=== PATIENT | female | born 1950 | race Caucasian/White ===

== ENCOUNTER 2020-11-12 14:57 | Emergency (ER) | payer MEDICARE ==
[~2020-11-12 14:57] MED LIST: ACETAMINOPHEN325 MG PO; ASPIRIN CHEWABL81 MG PO; BIOTIN1 MG PO; BIOTIN5000 MC1 PO; BRILINTA90 MG PO; CEFDINIR300 M1 PO; CIPRO500 MG PO; COLACE100 MG PO; CYMBALTA60 MG PO; DIFLUCAN150 MG PO; ELIQUIS5 MG PO; FEOSOL325 MG PO; FLONASE ALLER15.8 ML; FOCUS FACTOR PO; GARCINIA CAMBOGIA; HEPARIN 3010 UNIT/1 IV; HUMALOG 75100 UNIT/M SQ; HUMULIN R100 UNIT/2 SC; IMODIUM2 MG PO; K-DUR20 MEQ PO; KEFLEX250 MG PO; KETO; LACTINEX1 EACH PO; LANTUS100 UNIT/1 SQ; LASIX40 MG PO; LEVAQUIN500 MG PO; LEVAQUIN750 MG PO; LIPITOR80 MG PO; LOVASTATIN40 MG PO; LYRICA 150MG C150 MG PO; LYRICA 50MG CAP50 MG PO; MACROBID100 MG PO; MELATONIN5 M2 PO; METANX CAPSULE1 EACH PO; METRONIDAZOLE500 MG PO; MICON-GUARD 2% TOP; MUCINEX 600MG600 MG PO; NEXIUM 40MG CAP40 MG PO; NEXIUM40 MG PO; NITROFURANTOIN100 M1 PO; NITROQUIK SL0.4 MG SL; NORCO 5-325 TA1 EACH PO; NYSTATIN SUSP1 ML/ML SSW; PANTOPRAZOLE SO40 MG PO; PREDNISONE 10MG10 MG PO; PREGABALIN25 MG PO; PRINIVIL5 MG PO; ROCEPHIN2 GM IV; SINGULAIR10 MG PO; TOPROL XL 25MG25 MG PO; VANCOMYCIN1.25 GM/21 IV; VENTOLIN HFA IN18 GM INH; VITAMIN D1000 UNI1 PO; ZESTRIL5 MG PO
[2020-11-12] MEDS ORDERED: CEPHALEXIN500 M1 PO (19:03)
== END 2020-11-12 19:20 | disposition home or self-care (01) ==
LOC: FER 14:57
DX: L03.115 Cellulitis of right lower limb (principal); I10 Essential (primary) hypertension; E11.9 Type 2 diabetes mellitus without complications
CPT/HCPCS: 73610; 73630; 93971

== ENCOUNTER 2020-11-12 19:30 | Emergency (ER) | payer MEDICARE ==
[~2020-11-12 19:30] MED LIST changes: +CEPHALEXIN500 M1 PO
== END 2020-11-12 22:00 | disposition home or self-care (01) ==
LOC: FER 19:30
DX: S63.501A Unspecified sprain of right wrist, initial encounter (principal); S80.211A Abrasion, right knee, initial encounter; R51.9 Headache, unspecified; I11.0 Hypertensive heart disease with heart failure; I50.9 Heart failure, unspecified; I48.91 Unspecified atrial fibrillation; E11.9 Type 2 diabetes mellitus without complications; W19.XXXA Unspecified fall, initial encounter; Y92.481 Parking lot as the place of occurrence of the external cause
CPT/HCPCS: 70450; 72125

== ENCOUNTER 2020-11-15 04:37 | Inpatient (IN) | payer MEDICARE ==
[2020-11-15 04:55] LABS: BASOPHIL 0.4 % (0-2); EOSINOPHIL 1.6 % (0-7); HCT 34.7 % (37.0-47.0); HGB 11.4 g/dl (12.5-16.0); MCH 28.9 pg (25.0-31.0); MCHC 32.9 g/dL (32.0-36.0); MCV 87.8 fL (78.0-100.0); MONOCYTE 9.5 % (0-12); MPV 11.3 fL (6.0-9.5); NEUTROPHIL 44.5 % (41-80); NRBC 0; PLT 215 K/uL (150-400); RBC 3.95 M/uL (4.20-5.40); RDW 15.5 % (11.5-14.0); WBC 13.8 K/uL (4.0-10.5)
[2020-11-15 04:56] LABS: LYMPHOCYTE 43.6 % (15-48)
[2020-11-15 05:04] LABS: INR 1.03 (0.9-1.2); PROTHROMBIN TIME 12.8 SECONDS (11.4-13.6)
[2020-11-15 05:12] LABS: ALBUMIN 2.6 g/dL (3.4-5.0); BUN/CREAT RATIO (CALC) 20.7 RATIO; CREATININE 1.21 mg/dL (0.51-0.95); GLOBULIN (CALCULATION) 4.4 g/dL; POTASSIUM 3.9 mmol/L (3.5-5.1)
[2020-11-15 07:10] LABS: CORONAVIRUS 2019 SARS-COV-2 NEGATIVE (NEGATIVE); INFLUENZA A NAA NEGATIVE (NEGATIVE)
[2020-11-17 05:59] LABS: HCT 33.2 % (37.0-47.0); HGB 10.5 g/dl (12.5-16.0); MCH 29.2 pg (25.0-31.0); MCHC 31.6 g/dL (32.0-36.0); MCV 92.2 fL (78.0-100.0); MPV 10.9 fL (6.0-9.5); RBC 3.6 M/uL (4.20-5.40); RDW 15.6 % (11.5-14.0); WBC 10.7 K/uL (4.0-10.5)
[2020-11-17 06:22] LABS: BUN/CREAT RATIO (CALC) 15.4 RATIO; CREATININE 1.3 mg/dL (0.51-0.95); POTASSIUM 3.9 mmol/L (3.5-5.1)
[2020-11-18 05:45] LABS: HCT 35.8 % (37.0-47.0); HGB 11.3 g/dl (12.5-16.0); MCH 28.9 pg (25.0-31.0); MCHC 31.6 g/dL (32.0-36.0); MCV 91.6 fL (78.0-100.0); MPV 10.9 fL (6.0-9.5); RBC 3.91 M/uL (4.20-5.40); RDW 15.7 % (11.5-14.0); WBC 10.4 K/uL (4.0-10.5)
[2020-11-18 06:37] LABS: BUN/CREAT RATIO (CALC) 14.8 RATIO; CREATININE 1.22 mg/dL (0.51-0.95); POTASSIUM 3.9 mmol/L (3.5-5.1)
[2020-11-19 05:48] LABS: HCT 33.7 % (37.0-47.0); HGB 10.9 g/dl (12.5-16.0); MCH 29.2 pg (25.0-31.0); MCHC 32.3 g/dL (32.0-36.0); MCV 90.3 fL (78.0-100.0); MPV 10.6 fL (6.0-9.5); RBC 3.73 M/uL (4.20-5.40); RDW 15.7 % (11.5-14.0); WBC 11.1 K/uL (4.0-10.5)
[2020-11-19 06:16] LABS: BUN/CREAT RATIO (CALC) 15.3 RATIO; CREATININE 1.24 mg/dL (0.51-0.95); POTASSIUM 3.7 mmol/L (3.5-5.1)
[2020-11-20 07:08] LABS: HCT 35.1 % (37.0-47.0); HGB 11.4 g/dl (12.5-16.0); MCH 29.1 pg (25.0-31.0); MCHC 32.5 g/dL (32.0-36.0); MCV 89.5 fL (78.0-100.0); MPV 10.4 fL (6.0-9.5); RBC 3.92 M/uL (4.20-5.40); RDW 15.7 % (11.5-14.0); WBC 9.1 K/uL (4.0-10.5)
[2020-11-20 07:26] LABS: BUN/CREAT RATIO (CALC) 16.2 RATIO; CREATININE 1.17 mg/dL (0.51-0.95); POTASSIUM 3.5 mmol/L (3.5-5.1)
[2020-11-21 06:21] LABS: HCT 38.1 % (37.0-47.0); MCHC 31.5 g/dL (32.0-36.0); MPV 10.3 fL (6.0-9.5); RBC 4.14 M/uL (4.20-5.40); RDW 15.8 % (11.5-14.0); WBC 9.4 K/uL (4.0-10.5)
[2020-11-21 06:58] LABS: BUN/CREAT RATIO (CALC) 16.4 RATIO; CREATININE 1.22 mg/dL (0.51-0.95); POTASSIUM 3.6 mmol/L (3.5-5.1)
[2020-11-22] MEDS ORDERED: VANCOMYCIN750 MG/151 PO (13:31)
[2020-11-22] MEDS ORDERED: PROTONIX 40MG T40 MG PO (13:35)
[2020-11-22] MEDS ORDERED: HEPARIN 3010 UNIT/1 IV (14:06)
[2020-11-22] MEDS ORDERED: NITROGLYCERIN0.4 MG SL (14:06)
== END 2020-11-22 16:55 | disposition home health service (06) | DRG 603 ==
LOC: FER 04:37 → FMS 07:28
PROVIDERS: Emergency Medicine; ADMIT Hospitalist
PROC: 05HB33Z Insertion of Infusion Device into Right Basilic Vein, Percutaneous Approach (ICD-10-PCS; principal; 2020-11-22)
DX: L03.115 Cellulitis of right lower limb (principal); I13.0 Hypertensive heart and chronic kidney disease with heart failure and stage 1 through stage 4 chronic kidney disease, or unspecified chronic kidney disease; I50.32 Chronic diastolic (congestive) heart failure; R07.89 Other chest pain; E11.22 Type 2 diabetes mellitus with diabetic chronic kidney disease; N18.30 Chronic kidney disease, stage 3 unspecified; K21.9 Gastro-esophageal reflux disease without esophagitis; I48.91 Unspecified atrial fibrillation; Z20.822 Contact with and (suspected) exposure to COVID-19; G25.81 Restless legs syndrome; E78.5 Hyperlipidemia, unspecified; Z86.73 Personal history of transient ischemic attack (TIA), and cerebral infarction without residual deficits; Z90.710 Acquired absence of both cervix and uterus; Z90.49 Acquired absence of other specified parts of digestive tract; Z98.890 Other specified postprocedural states
CPT/HCPCS: 36415; 71045; 80048; 80053; 80202; 82962; 84484; 85025; 85610; 93005; 93922; 97110; 97116; 97162; 97166; 97530-GP; 97535; C1751; G0378; J0692; J0696; J1642; J1650; J2270; J2405; J3370; J7050; U0002

== ENCOUNTER 2020-11-28 14:49 | Emergency (ER) | payer MEDICARE ==
[~2020-11-28 14:49] MED LIST changes: +NITROGLYCERIN0.4 MG SL; +PROTONIX 40MG T40 MG PO; +VANCOMYCIN750 MG/151 PO
== END 2020-11-28 15:29 | disposition home or self-care (01) ==
LOC: FER 14:49
DX: T85.690A Other mechanical complication of cranial or spinal infusion catheter, initial encounter (principal); M79.641 Pain in right hand; E11.9 Type 2 diabetes mellitus without complications; Y82.8 Other medical devices associated with adverse incidents
CPT/HCPCS: 99283; J1642

== ENCOUNTER 2020-11-29 22:04 | Inpatient (IN) | payer MEDICARE ==
[2020-11-29 22:51] LABS: BASOPHIL 0.3 % (0-2); EOSINOPHIL 0.2 % (0-7); HCT 39.1 % (37.0-47.0); HGB 12.2 g/dl (12.5-16.0); MCHC 31.2 g/dL (32.0-36.0); MCV 92.9 fL (78.0-100.0); MONOCYTE 4.7 % (0-12); MPV 10.8 fL (6.0-9.5); NEUTROPHIL 62.4 % (41-80); NRBC 0; PLT 295 K/uL (150-400); RBC 4.21 M/uL (4.20-5.40); RDW 15.9 % (11.5-14.0)
[2020-11-29 22:55] LABS: WBC 21.7 K/uL (4.0-10.5)
[2020-11-29 23:08] LABS: ALBUMIN 2.8 g/dL (3.4-5.0); BILIRUBIN - TOTAL 0.6 mg/dL (0.2-1.0); BUN/CREAT RATIO (CALC) 34.9 RATIO; CREATININE 1.72 mg/dL (0.51-0.95); GLOBULIN (CALCULATION) 5.3 g/dL; POTASSIUM 5.1 mmol/L (3.5-5.1); TOTAL PROTEIN 8.1 g/dL (6.4-8.2)
[2020-11-29 23:13] LABS: LACTIC ACID 2.4 mmol/L (0.4-1.9)
[2020-11-29 23:31] LABS: CORONAVIRUS 2019 SARS-COV-2 NEGATIVE (NEGATIVE); INFLUENZA A NAA NEGATIVE (NEGATIVE)
[2020-11-30 00:47] LABS: BILIRUBIN NEGATIVE (NEGATIVE); BLOOD 3+ Ery/uL (NEGATIVE); CLARITY CLOUDY (CLEAR); COLOR YELLOW (YELLOW); GLUCOSE (U) NORMAL (NORMAL); LEUKOCYTES 2+ Leu/uL (NEGATIVE); NITRITE NEGATIVE (NEGATIVE); PROTEIN 3+ mg/dL (NEGATIVE); SPECIFIC GRAVITY 1.025 (1.001-1.030); UROBILINOGEN 0.2 mg/dL (0.2-1.0); pH 5.5 (5.0-9.0)
[2020-11-30 00:54] LABS: BACTERIA 4+; SQUAMOUS EPITHELIAL CELLS RARE; URINARY RBC 20-50; URINARY WBC TNTC; YEAST PRESENT
[2020-11-30] MEDS ORDERED: FLORASTOR250 MG PO (04:43)
[2020-11-30] MEDS ORDERED: MIRALAX17 GM PO (04:45)
[2020-11-30] MEDS ORDERED: ACETAMINOPHEN500 M1 PO (04:45)
[2020-11-30] MEDS ORDERED: METANX CAPSULE1 EACH PO (04:55)
--- NOTE | 2020-11-30 11:58 | NUR ---
11/30/20 Patient will be transferred to [facility].
--- NOTE | 2020-11-30 15:59 | NUR ---
BLADDER SCAN OF PATIENT DONE DUE TO REPORT OF PATIENT NOT VOIDING THIS SHIFT. MULTIPLE BLADDER SCANS SHOWED 152ML OF URINE IN BLADDER. PRIMARY RN NOTIFIED.
--- NOTE | 2020-11-30 16:53 | NUR ---
PT NOT VOIDED THIS SHIFT. DID A BLADDER SCAN PT HAD 152CC. INFORMED DR. LINDER OF PT NOT VOIDING, NEW ORDER TO START FLUIDS NS @ 50CC HR.
[2020-12-01 06:11] LABS: ALBUMIN 1.9 g/dL (3.4-5.0); BILIRUBIN - TOTAL 0.5 mg/dL (0.2-1.0); BUN/CREAT RATIO (CALC) 20.8 RATIO; CREATININE 3.08 mg/dL (0.51-0.95); POTASSIUM 4.5 mmol/L (3.5-5.1)
[2020-12-01 06:17] LABS: TOTAL PROTEIN 5.9 g/dL (6.4-8.2)
[2020-12-01 06:24] LABS: BASOPHIL 0.4 % (0-2); EOSINOPHIL 1.7 % (0-7); HCT 27.7 % (37.0-47.0); HGB 8.8 g/dl (12.5-16.0); LYMPHOCYTE 47.8 % (15-48); MCH 29.4 pg (25.0-31.0); MCHC 31.8 g/dL (32.0-36.0); MCV 92.6 fL (78.0-100.0); MONOCYTE 7.7 % (0-12); MPV 11.5 fL (6.0-9.5); NEUTROPHIL 42.1 % (41-80); NRBC 0; PLT 200 K/uL (150-400); RBC 2.99 M/uL (4.20-5.40); RDW 16.3 % (11.5-14.0); WBC 11.5 K/uL (4.0-10.5)
== END 2020-12-01 09:10 | disposition other institution (70) | DRG 871 ==
LOC: FER 22:04 → FMS 11-30 01:17
PROVIDERS: Emergency Medicine; Nurse Practitioner; ADMIT Internal Medicine
DX: A41.9 Sepsis, unspecified organism (principal); J18.9 Pneumonia, unspecified organism; N30.01 Acute cystitis with hematuria; L03.115 Cellulitis of right lower limb; N17.9 Acute kidney failure, unspecified; I13.0 Hypertensive heart and chronic kidney disease with heart failure and stage 1 through stage 4 chronic kidney disease, or unspecified chronic kidney disease; I50.32 Chronic diastolic (congestive) heart failure; E11.22 Type 2 diabetes mellitus with diabetic chronic kidney disease; N18.30 Chronic kidney disease, stage 3 unspecified; Z20.822 Contact with and (suspected) exposure to COVID-19; E78.5 Hyperlipidemia, unspecified; K21.9 Gastro-esophageal reflux disease without esophagitis; I48.91 Unspecified atrial fibrillation; G47.33 Obstructive sleep apnea (adult) (pediatric); G25.81 Restless legs syndrome; Y95 Nosocomial condition; Z79.82 Long term (current) use of aspirin; Z79.4 Long term (current) use of insulin; Z79.899 Other long term (current) drug therapy; Z86.73 Personal history of transient ischemic attack (TIA), and cerebral infarction without residual deficits; Z90.49 Acquired absence of other specified parts of digestive tract; Z90.710 Acquired absence of both cervix and uterus; Z98.890 Other specified postprocedural states; Z99.81 Dependence on supplemental oxygen; Z98.1 Arthrodesis status
CPT/HCPCS: 36415; 71045; 80048; 80053; 81001; 82150; 83605; 84145; 84484; 85025; 87040; 87088; 93005; 94010; 94640; 94760; C9113; J1650; J2405; J2543; J3370; J7030; J7050; U0002

== ENCOUNTER 2021-03-27 02:35 | Emergency (ER) | payer MEDICARE ==
[~2021-03-27 02:35] MED LIST changes: +ACETAMINOPHEN500 M1 PO; +FLORASTOR250 MG PO; +MIRALAX17 GM PO
[2021-03-27 03:20] LABS: BASOPHIL 0.7 % (0-2); EOSINOPHIL 1.9 % (0-7); HGB 8.3 g/dl (12.5-16.0); LYMPHOCYTE 53.7 % (15-48); MCH 23.8 pg (25.0-31.0); MCHC 28.6 g/dL (32.0-36.0); MCV 83.1 fL (78.0-100.0); MONOCYTE 11.6 % (0-12); MPV 11.5 fL (6.0-9.5); NRBC 0; PLT 200 K/uL (150-400); RBC 3.49 M/uL (4.20-5.40); RDW 21.2 % (11.5-14.0); WBC 11.6 K/uL (4.0-10.5)
[2021-03-27 03:29] LABS: NEUTROPHIL 31.9 % (41-80)
[2021-03-27 03:42] LABS: ALBUMIN 2.5 g/dL (3.4-5.0); BILIRUBIN - TOTAL 0.4 mg/dL (0.2-1.0); BUN/CREAT RATIO (CALC) 9.7 RATIO; CREATININE 2.36 mg/dL (0.51-0.95); POTASSIUM 4.4 mmol/L (3.5-5.1); TOTAL PROTEIN 6.5 g/dL (6.4-8.2)
[2021-03-27 04:00] LABS: BILIRUBIN NEGATIVE (NEGATIVE); BLOOD 3+ Ery/uL (NEGATIVE); CLARITY CLOUDY (CLEAR); COLOR YELLOW (YELLOW); GLUCOSE (U) NORMAL (NORMAL); LEUKOCYTES 3+ Leu/uL (NEGATIVE); NITRITE NEGATIVE (NEGATIVE); PROTEIN 2+ mg/dL (NEGATIVE); UROBILINOGEN 0.2 mg/dL (0.2-1.0)
[2021-03-27 04:07] LABS: BACTERIA 4+; URINARY WBC TNTC
[2021-03-27 04:23] LABS: LACTIC ACID 1.5 mmol/L (0.4-1.9)
== END 2021-03-27 13:45 | disposition other institution (70) ==
LOC: FER 02:35
PROVIDERS: Emergency Medicine Emergency Medical Services
DX: N39.0 Urinary tract infection, site not specified (principal); E11.22 Type 2 diabetes mellitus with diabetic chronic kidney disease; N18.6 End stage renal disease; I50.9 Heart failure, unspecified; Z99.2 Dependence on renal dialysis; Z98.890 Other specified postprocedural states; Z20.822 Contact with and (suspected) exposure to COVID-19; Z98.84 Bariatric surgery status
CPT/HCPCS: 36415; 71250; 80053; 81001; 82150; 83605; 83690; 84145; 85025; 87076; 87088; 87186; J0696; J1170; J2270; J2405; U0002

== ENCOUNTER 2021-05-26 11:23 | Emergency (ER) | payer MEDICARE ==
[2021-05-26 12:55] LABS: BASOPHIL 0.4 % (0-2); EOSINOPHIL 0.7 % (0-7); HCT 27.4 % (37.0-47.0); HGB 8.3 g/dl (12.5-16.0); LYMPHOCYTE 45.5 % (15-48); MCH 23.9 pg (25.0-31.0); MCHC 30.3 g/dL (32.0-36.0); MCV 78.7 fL (78.0-100.0); MONOCYTE 13.6 % (0-12); MPV 10.8 fL (6.0-9.5); NEUTROPHIL 39.5 % (41-80); NRBC 0; PLT 194 K/uL (150-400); RBC 3.48 M/uL (4.20-5.40); WBC 7.4 K/uL (4.0-10.5)
[2021-05-26 13:04] LABS: ALBUMIN 2.4 g/dL (3.4-5.0); BILIRUBIN - TOTAL 0.4 mg/dL (0.2-1.0); BUN/CREAT RATIO (CALC) 17.7 RATIO; CREATININE 1.86 mg/dL (0.51-0.95); GLOBULIN (CALCULATION) 4.1 g/dL; POTASSIUM 4.4 mmol/L (3.5-5.1); TOTAL PROTEIN 6.5 g/dL (6.4-8.2)
[2021-05-26 13:46] LABS: BILIRUBIN NEGATIVE (NEGATIVE); BLOOD 3+ Ery/uL (NEGATIVE); CLARITY TURBID (CLEAR); COLOR YELLOW (YELLOW); GLUCOSE (U) NORMAL (NORMAL); LEUKOCYTES 3+ Leu/uL (NEGATIVE); NITRITE POSITIVE (NEGATIVE); PROTEIN 2+ mg/dL (NEGATIVE); UROBILINOGEN 0.2 mg/dL (0.2-1.0)
[2021-05-26 13:54] LABS: URINARY WBC TNTC
[2021-05-26 13:55] LABS: BACTERIA 3+; SQUAMOUS EPITHELIAL CELLS RARE; URINARY RBC 20-50
[2021-05-26] MEDS ORDERED: NORCO 5-325 TA1 EACH PO (16:17)
[2021-05-26] MEDS ORDERED: BACTRIM DS TAB1 EACH PO (16:17)
== END 2021-05-26 17:27 | disposition home or self-care (01) ==
LOC: FER 11:23
PROVIDERS: Internal Medicine
DX: N13.6 Pyonephrosis (principal); E11.22 Type 2 diabetes mellitus with diabetic chronic kidney disease; N18.6 End stage renal disease; I50.9 Heart failure, unspecified; I48.91 Unspecified atrial fibrillation; Z99.2 Dependence on renal dialysis
CPT/HCPCS: 36415; 71045; 80053; 81001; 83605; 83690; 84484; 85025; 87076; 87088; 87186; 93005; J2543; J3010

== ENCOUNTER 2021-07-02 07:33 | Inpatient (IN) | payer MEDICARE ==
[~2021-07-02] VITALS: Ht 157.5 cm; Wt 75.5 kg
[~2021-07-02 07:33] MED LIST changes: +BACTRIM DS TAB1 EACH PO
[2021-07-02 08:30] LABS: BASOPHIL 0.1 % (0-2); EOSINOPHIL 2.3 % (0-7); HCT 26.9 % (37.0-47.0); LYMPHOCYTE 61.2 % (15-48); MCH 26.2 pg (25.0-31.0); MCHC 29.7 g/dL (32.0-36.0); MCV 88.2 fL (78.0-100.0); MONOCYTE 7.9 % (0-12); NEUTROPHIL 28.4 % (41-80); NRBC 0; RBC 3.05 M/uL (4.20-5.40); RDW 26.2 % (11.5-14.0); WBC 7.8 K/uL (4.0-10.5)
[2021-07-02 08:55] LABS: PLT 51 K/uL (150-400)
[2021-07-02 09:38] LABS: ALBUMIN 2.2 g/dL (3.4-5.0); ALKALINE PHOSHATASE 114 U/L (46-116); ALT 42 U/L (14-59); AST 42 U/L (15-37); BILIRUBIN - TOTAL 0.3 mg/dL (0.2-1.0); BUN 14 mg/dL (7-18); BUN/CREAT RATIO (CALC) 13.5 RATIO; C-REACTIVE PROTEIN <0.20 mg/dL (<=0.90); CHLORIDE 112 mmol/L (98-107); CO2 (BICARBONATE) 19 mmol/L (21-32); CREATININE 1.04 mg/dL (0.51-0.95); GLOBULIN (CALCULATION) 2.7 g/dL; GLUCOSE 87 mg/dL (74-106); POTASSIUM 4.1 mmol/L (3.5-5.1); TOTAL PROTEIN 4.9 g/dL (6.4-8.2)
[2021-07-02 12:55] LABS: INR 1.13 (0.9-1.2); PROTHROMBIN TIME 13.9 SECONDS (11.8-13.4); PTT 27.5 SECONDS (24.4-34.7)
[2021-07-02] MEDS ORDERED: ELIQUIS5 MG PO (14:56)
[2021-07-02] MEDS ORDERED: LIPITOR40 MG PO (14:57)
[2021-07-02] MEDS ORDERED: ASPIRIN EC81 MG PO (14:57)
[2021-07-02] MEDS ORDERED: BUSPAR5 MG PO (14:58)
[2021-07-02] MEDS ORDERED: OS-CAL500 MG PO (14:58)
[2021-07-02] MEDS ORDERED: SINGULAIR10 MG PO (14:59)
[2021-07-02] MEDS ORDERED: COLACE100 MG PO (14:59)
[2021-07-02] MEDS ORDERED: TOPROL XL 25MG25 MG PO (14:59)
[2021-07-02] MEDS ORDERED: LYRICA300 MG PO (15:00)
[2021-07-02] MEDS ORDERED: FLORASTOR250 MG PO (15:01)
[2021-07-02] MEDS ORDERED: PROTONIX 40MG T40 MG PO (15:01)
[2021-07-02] MEDS ORDERED: RENAGEL800 MG PO (15:01)
[2021-07-02] MEDS ORDERED: LANTUS **100 UNITS/ SC (15:02)
[2021-07-02] MEDS ORDERED: MYCOLOG15 GM TOP (15:02)
[2021-07-02] MEDS ORDERED: SYMBICORT 80-10.2 GM INH (15:02)
[2021-07-02] MEDS ORDERED: VENTOLIN HFA IN18 GM INH (15:03)
[2021-07-02] MEDS ORDERED: LACTULOSE10 G/15 ML PO (15:04)
[2021-07-02] MEDS ORDERED: DOXYCYCLINE HY100 MG PO (15:04)
[2021-07-02] MEDS ORDERED: 8 HOUR650 MG PO (15:04)
[2021-07-03 05:55] LABS: BASOPHIL 0.1 % (0-2); HCT 23.6 % (37.0-47.0); HGB 7.2 g/dl (12.5-16.0); LYMPHOCYTE 64.8 % (15-48); MCH 26.5 pg (25.0-31.0); MCHC 30.5 g/dL (32.0-36.0); MCV 86.8 fL (78.0-100.0); MONOCYTE 9.1 % (0-12); NRBC 0; PLT 43 K/uL (150-400); RBC 2.72 M/uL (4.20-5.40); RDW 26.5 % (11.5-14.0); WBC 6.8 K/uL (4.0-10.5)
[2021-07-03 06:09] LABS: INR 1.25 (0.9-1.2)
[2021-07-03 06:10] LABS: PTT 32.7 SECONDS (24.4-34.7)
[2021-07-03 06:12] LABS: IRON % SATURATION 22.9 %SAT (20-50)
[2021-07-03 06:25] LABS: NEUTROPHIL 23.7 % (41-80)
[2021-07-03 07:17] LABS: BILIRUBIN - TOTAL 0.3 mg/dL (0.2-1.0); BUN/CREAT RATIO (CALC) 13.8 RATIO; CREATININE 1.09 mg/dL (0.51-0.95); GLOBULIN (CALCULATION) 2.1 g/dL; POTASSIUM 4.1 mmol/L (3.5-5.1); TOTAL PROTEIN 4.1 g/dL (6.4-8.2)
[2021-07-04 05:08] LABS: HIV SCREEN 4TH GENERATION WRFX Non Reactive (Non Reactive)
[2021-07-04 06:08] LABS: HBSAG SCREEN Negative (Negative); HEP A AB, IGM Negative (Negative); HEP B CORE AB, IGM Negative (Negative); HEP C VIRUS AB <0.1 (0.0-0.9)
[2021-07-04 06:50] LABS: BASOPHIL 0.3 % (0-2); EOSINOPHIL 1.9 % (0-7); HCT 23.3 % (37.0-47.0); HGB 7.2 g/dl (12.5-16.0); MCHC 30.9 g/dL (32.0-36.0); MCV 87.3 fL (78.0-100.0); MONOCYTE 10.1 % (0-12); NEUTROPHIL 16.5 % (41-80); NRBC 0; RBC 2.67 M/uL (4.20-5.40); RDW 27.3 % (11.5-14.0); WBC 5.8 K/uL (4.0-10.5)
[2021-07-04 06:51] LABS: PLT 56 K/uL (150-400)
[2021-07-04 07:13] LABS: BILIRUBIN - TOTAL 0.2 mg/dL (0.2-1.0); BUN/CREAT RATIO (CALC) 13.1 RATIO; CREATININE 1.22 mg/dL (0.51-0.95); GLOBULIN (CALCULATION) 2.2 g/dL; MAGNESIUM 1.7 mg/dL (1.8-2.4); POTASSIUM 3.8 mmol/L (3.5-5.1); TOTAL PROTEIN 4.2 g/dL (6.4-8.2)
--- NOTE | 2021-07-04 11:30 | NUR ---
visited patient to obtain food history: patient verbalized non-compliance with MVI supplementation. RD to follow-up with [facility] associated with her surgery to verify approp dosing; strongly encouraged patient to be compliant as this relates to current concerns with anemia.
[2021-07-04 15:12] LABS: HEPARIN INDUCED PLATELET AB 0.171 OD (0.000-0.400)
[2021-07-05 06:24] LABS: BASOPHIL 0.1 % (0-2); EOSINOPHIL 2.2 % (0-7); HCT 24.8 % (37.0-47.0); HGB 7.6 g/dl (12.5-16.0); LYMPHOCYTE 60.1 % (15-48); MCH 26.9 pg (25.0-31.0); MCHC 30.6 g/dL (32.0-36.0); MCV 87.6 fL (78.0-100.0); MONOCYTE 7.5 % (0-12); MPV 12.3 fL (6.0-9.5); NRBC 0.3; PLT 80 K/uL (150-400); RBC 2.83 M/uL (4.20-5.40); RDW 27.2 % (11.5-14.0)
[2021-07-05 06:42] LABS: BUN/CREAT RATIO (CALC) 13.4 RATIO; CREATININE 1.12 mg/dL (0.51-0.95); MAGNESIUM 2.2 mg/dL (1.8-2.4); PHOSPHORUS 3.6 mg/dL (2.6-4.7); POTASSIUM 3.8 mmol/L (3.5-5.1)
[2021-07-05 07:45] LABS: WBC 6.8 K/uL (4.0-10.5)
[2021-07-05 07:58] LABS: TOTAL CELL COUNT 100
[2021-07-05 07:59] LABS: BAND 5 % (0-10); EOSINOPHIL(M) 5 % (0-7); LYMPHOCYTE(M) 38 % (15-48); MONOCYTE(M) 8 % (0-12); NEUTROPHILS(M) 38 % (41-80); VARIANT LYMPHOCYTE 5
[2021-07-05 08:00] LABS: METAMYELOCYTE 1
[2021-07-05 08:01] LABS: ANISOCYTOSIS SLIGHT; PLATELET ESTIMATE DECREASED; PLATELET MORPHOLOGY NORMAL
--- NOTE | 2021-07-05 14:54 | NUR ---
07/05/21 MS. Brito was admitted from [facility]. She was approved to return to [facility] per Lucy if patient is able to stand pivot transfer with the assist of one. OT reports patient to have transferrred from bed to with assist of one. - [facility] was notified of admission and discharge.
== END 2021-07-05 18:55 | disposition home health service (06) | DRG 813 ==
LOC: FER 07:33 → FMS 12:32
PROVIDERS: Emergency Medicine; Internal Medicine; ADMIT Family Medicine
DX: D69.6 Thrombocytopenia, unspecified (principal); N17.9 Acute kidney failure, unspecified; L97.419 Non-pressure chronic ulcer of right heel and midfoot with unspecified severity; K92.2 Gastrointestinal hemorrhage, unspecified; I50.32 Chronic diastolic (congestive) heart failure; I13.0 Hypertensive heart and chronic kidney disease with heart failure and stage 1 through stage 4 chronic kidney disease, or unspecified chronic kidney disease; Z20.822 Contact with and (suspected) exposure to COVID-19; D50.9 Iron deficiency anemia, unspecified; S53.491A Other sprain of right elbow, initial encounter; E11.621 Type 2 diabetes mellitus with foot ulcer; I48.91 Unspecified atrial fibrillation; E83.42 Hypomagnesemia; N18.30 Chronic kidney disease, stage 3 unspecified; E11.22 Type 2 diabetes mellitus with diabetic chronic kidney disease; L89.612 Pressure ulcer of right heel, stage 2; Z86.73 Personal history of transient ischemic attack (TIA), and cerebral infarction without residual deficits; Z86.16 Personal history of COVID-19; Z79.01 Long term (current) use of anticoagulants; Z79.82 Long term (current) use of aspirin; Z79.4 Long term (current) use of insulin; Z79.899 Other long term (current) drug therapy; Z90.710 Acquired absence of both cervix and uterus; Z90.49 Acquired absence of other specified parts of digestive tract; Z98.890 Other specified postprocedural states; W19.XXXA Unspecified fall, initial encounter
CPT/HCPCS: 36415; 73080; 80048; 80053; 80074; 82607; 82728; 82962; 83010; 83540; 83550; 83615; 83735; 83880; 84100; 84145; 85025; 85379; 85610; 85730; 86022; 86140; 87389; 93005; 97163; 97166; 97530; 97530-GP; 97535; J2916; J3475; U0002